=== PATIENT | female | born 1945 | race Caucasian/White ===

== ENCOUNTER 2017-07-25 13:13 | Observation (INO) | payer OTHER ==
[~2017-07-25] VITALS: Ht 160 cm; Wt 52.6 kg
[2017-07-25 13:17] VITALS: BP 109/45
[2017-07-25 14:37] LABS: BASOPHILS # (AUTO) 0.1 K/uL (0.00-0.22); BASOPHILS % (AUTO) 0.6 % (0.0-2.0); EOSINOPHILS % (AUTO) 0.4 % (0.0-4.0); HEMATOCRIT 42.4 % (36-48); HEMOGLOBIN 13.8 g/dL (12.0-16.0); LYMPHOCYTES # (AUTO) 1.8 K/uL (2.5-16.5); LYMPHOCYTES % (AUTO) 16.9 % (20.5-51.1); MEAN CORPUSCULAR HEMOGLOBIN 31 pg (27-31); MEAN CORPUSCULAR HGB CONC 33 g/dL (33-37); MEAN CORPUSCULAR VOLUME 93.6 fL (80-94); MONOCYTES # (AUTO) 0.6 K/uL (0.8-1.0); MONOCYTES % (AUTO) 5.4 % (1.7-9.3); NEUTROPHILS % (AUTO) 76.7 % (42.2-75.2); PLATELET COUNT (AUTO) 386 K/uL (140-450); RED BLOOD CELL COUNT(AUTO) 4.53 MIL/uL (4.20-5.40); RED CELL DISTRIBUTION WIDTH 14.2 % (11.6-13.7); WHITE BLOOD COUNT (AUTO) 10.4 K/uL (4.8-10.8)
[2017-07-25 14:59] LABS: ALBUMIN 3.3 g/dL (3.4-5.0); ANION GAP 11.2 (8-16); ASPARTATE AMINOTRANSFERASE 21 U/L (15-37); CARBON DIOXIDE 27.6 mmol/L (21-32); CHLORIDE 107 mmol/L (98-107); CREATININE 0.6 mg/dL (0.6-1.3); GFR ARICAN-AMERICAN 127 mL/min (>90); GLUCOSE 124 mg/dL (74-106); POTASSIUM 3.8 mmol/L (3.5-5.1); SODIUM SERUM 142 mmol/L (136-145); TOTAL BILIRUBIN 1.2 mg/dL (0.0-1.0); UREA NITROGEN, BLOOD 10 mg/dL (7-18)
[2017-07-25] MEDS ORDERED: NACL 0.9% 1,000 ML IV ONE (15:15)
[2017-07-25 15:21] LABS: ACETAMINOPHEN < 0.5 ug/ml (10-30); SALICYLATE < 2.8 mg/dL (2.8-20.0)
[2017-07-25] MEDS: NACL 0.9% 2,000 ML IV SCH ×2 (15:23→20:36)
[2017-07-25 16:39] LABS: BLOOD, URINE NEGATIVE (NEGATIVE); COLOR,URINE YELLOW (YELLOW); LEUKOCYTE ESTERASE ,URINE 1+ (NEGATIVE); NITRITE, URINE NEGATIVE (NEGATIVE); PH,URINE 5.5 (5.0-9.0); UGLUCOSE NEGATIVE (NEGATIVE)
[2017-07-25 16:44] LABS: APPEARANCE,URINE HAZY (CLEAR); BILIRUBIN,URINE NEGATIVE (NEGATIVE)
[2017-07-25 16:52] LABS: RBC,URINE NONE SEEN /HPF (0-5)
[2017-07-25] MEDS ORDERED: LORazepam 2 MG/ML VIAL IVP ONE (17:10)
[2017-07-25] MEDS ORDERED: cefTRIAXone 1,000 MG VIAL ONE (17:37)
[2017-07-25] MEDS: NACL 0.9% 1,000 ML IV SCH (18:26)
[2017-07-25] MEDS ORDERED: LORazepam 2 MG/ML VIAL IVP PRN (18:30)
[2017-07-25] MEDS ORDERED: ONDANSETRON 4 MG/2 ML VIAL IVP PRN (18:30)
[2017-07-25] MEDS ORDERED: ACETAMINOPHEN 325 MG TAB PO PRN (18:30)
[2017-07-25] MEDS ORDERED: HYDROcodone/APAP 5/325 MG 1 TAB TAB PO PRN (18:30)
[2017-07-25 18:44] LABS: BARBITURATE, URINE NEG. ng/ml (NEG <=200); BENZODIAZEPINE, URINE POS. ng/mL (NEG <=200); CANNABINOID, URINE NEG. ng/mL (NEG <=50); COCAINE, URINE NEG. ng/mL (NEG <=300); OPIATE, URINE NEG. ng/mL (NEG <=2000); PHENCYCLIDINE SCREEN,URINE NEG. ng/mL (NEG <=25)
[2017-07-25 19:15] VITALS: BP 95/59
[2017-07-25 23:39] LABS: CREATINE KINASE MB 1.3 ng/mL (0-3.6)
[2017-07-26] VITALS: BP 106/62
[2017-07-26 04:00] VITALS: BP 106/67
[2017-07-26] MEDS: NACL 0.9% 1,000 ML IV SCH ×2 (06:56→21:40)
[2017-07-26 07:33] LABS: BASOPHILS % (AUTO) 0.5 % (0.0-2.0); EOSINOPHILS # (AUTO) 0.1 K/uL (0-0.4); EOSINOPHILS % (AUTO) 0.8 % (0.0-4.0); HEMATOCRIT 43.9 % (36-48); HEMOGLOBIN 14.7 g/dL (12.0-16.0); LYMPHOCYTES # (AUTO) 1.5 K/uL (2.5-16.5); LYMPHOCYTES % (AUTO) 18.1 % (20.5-51.1); MEAN CORPUSCULAR HEMOGLOBIN 32 pg (27-31); MEAN CORPUSCULAR HGB CONC 34 g/dL (33-37); MONOCYTES # (AUTO) 0.6 K/uL (0.8-1.0); MONOCYTES % (AUTO) 7.4 % (1.7-9.3); NEUTROPHILS # (AUTO) 6.2 K/uL (1.8-7.7); NEUTROPHILS % (AUTO) 73.2 % (42.2-75.2); PLATELET COUNT (AUTO) 351 K/uL (140-450); RED BLOOD CELL COUNT(AUTO) 4.67 MIL/uL (4.20-5.40); RED CELL DISTRIBUTION WIDTH 13.8 % (11.6-13.7); WHITE BLOOD COUNT (AUTO) 8.5 K/uL (4.8-10.8)
[2017-07-26 08:00] VITALS: BP 101/65
[2017-07-26 08:10] LABS: CREATINE KINASE MB 1.2 ng/mL (0-3.6)
[2017-07-26] MEDS ORDERED: HALOPERIDOL IM 5 MG/ML VIAL IM SCH (08:45)
[2017-07-26] MEDS: ASPIRIN 81 MG TAB.CHEW PO SCH (09:00)
[2017-07-26] MEDS: ENOXAPARIN 40 MG/0.4 ML SYR SUBQ SCH (09:00)
[2017-07-26 09:49] LABS: CARBON DIOXIDE 24.4 mmol/L (21-32); CREATININE 0.5 mg/dL (0.6-1.3); POTASSIUM 3.4 mmol/L (3.5-5.1)
[2017-07-26 16:00] VITALS: BP 99/42
[2017-07-26] MEDS ORDERED: POTASSIUM CHLORIDE 10 MEQ TABER PO SCH (17:10)
[2017-07-27] MEDS: NACL 0.9% 1,000 ML IV SCH (07:56)
[2017-07-27] MEDS: ENOXAPARIN 40 MG/0.4 ML SYR SUBQ SCH (09:00)
[2017-07-27] MEDS: ASPIRIN 81 MG TAB.CHEW PO SCH (09:00)
[2017-07-27] MEDS ORDERED: DIVALPROEX 250 MG TABEC PO SCH ×2 (09:50→10:00)
[2017-07-27] MEDS ORDERED: LORazepam 1 MG TAB PO PRN (09:50)
[2017-07-27] MEDS ORDERED: DONE10TA10 PO (11:26)
[2017-07-27] MEDS ORDERED: CITA40TA5 PO (11:26)
[2017-07-27] MEDS ORDERED: ALPR0.5T20 PO (11:27)
[2017-07-27] MEDS ORDERED: LORA0.5T6 PO ×2 (11:29→11:31)
== END 2017-07-27 11:45 | disposition home or self-care (01) ==
LOC: MED 13:13 → MTU 18:31 → UNDOADMIN 18:31
PROVIDERS: ADMIT Hospitalist; ATTEND Hospitalist
DX: R41.82 Altered mental status, unspecified (principal); N39.0 Urinary tract infection, site not specified; G30.9 Alzheimer's disease, unspecified
CPT/HCPCS: 36415; 70450; 71045; 73020; 73560; 80048; 80053; 80305; 81001; 82550; 82553; 83735; 84484; 85025; 87040; 87081; 87086; 90471; 90715; 93005; 96361; 96365; 96372; 96375; 96376; 99285; G0378; G0480; G0482; J0696; J1630; J2060; J7060; Q0092; J1650

== ENCOUNTER 2017-12-31 19:00 | Inpatient (IN) | payer OTHER ==
[~2017-12-31] VITALS: Ht 162.6 cm; Wt 59.0 kg
[~2017-12-31 19:00] MED LIST: CITA40TA5 PO; DONE10TA10 PO; LORA0.5T6 PO
--- NOTE | 2017-12-31 19:05 | NUR ---
PT LEXUS BLS. TAKEN TO BED 6
[2017-12-31 19:08] VITALS: BP 132/77
[2017-12-31] MEDS ORDERED: ZIPRASIDONE MESYLATE 20 MG/ML VIAL IM ONE (19:30)
--- NOTE | 2017-12-31 19:30 | NUR ---
72 YO FEMALE BIB EMS ON 5150 HOLD, PER REPORT PT IS GRAVELY DISABLED. HAS HX OF DEMENTIA AND ALZEIHMERS. PT REPORTEDLY LIVES WITH SON GORGE AND RAN INTO STREET REFUSING MEDICATION. PT AWAKE ANSWERING QUESTIONS BUT IS FORGETFUL. PT CONFUSED ABOUT HER WHEREABOUTS AND IS A POOR HISTORIAN. LUNGS CLEAR TO AUSCULTATION. S1 S2 HEARD, <3 SEC CAP REFILL. SKIN PINK WARM DRY INTACT. PT FREQUENTLY REQUESTING TO USE RESTROOM. PT VOIDING CLEAR YELLOW URINE. NO ACUTE DISTRESS NOTED. WILL CONTINUE TO OBSERVE.
[2017-12-31] MEDS ORDERED: WATER STERILE 10 ML MC ONE (19:51)
--- NOTE | 2017-12-31 20:06 | NUR ---
Dr. Sher evaluating patient at bedside.
[2017-12-31] MEDS ORDERED: LORazepam 2 MG/ML VIAL IM ONE (20:20)
[2017-12-31] MEDS ORDERED: LORazepam 2 MG/ML VIAL ONE (20:28)
--- NOTE | 2017-12-31 20:30 | NUR ---
PT GIVEN ATIVAN FOR AGITATION. PT CONTINUES TO ASK FOR SISTER, YELLING @ STAFF; FLAILING ARMS @ STAFF. PT REDIRECTED; REORIENTED. ASSISTED TO BED, EMT @ BEDSIDE. BED LOCKED IN LOWEST POSITION. SAFETY PRECAUTIONS IN PLACE. WILL CONTINUE TO OBSERVE.
[2017-12-31 20:33] LABS: APPEARANCE,URINE CLEAR (CLEAR); BARBITURATE, URINE NEG. ng/ml (NEG <=200); BENZODIAZEPINE, URINE NEG. ng/mL (NEG <=200); BILIRUBIN,URINE NEGATIVE (NEGATIVE); BLOOD, URINE TRACE (NEGATIVE); CANNABINOID, URINE NEG. ng/mL (NEG <=50); COCAINE, URINE NEG. ng/mL (NEG <=300); COLOR,URINE YELLOW (YELLOW); OPIATE, URINE NEG. ng/mL (NEG <=2000); PHENCYCLIDINE SCREEN,URINE NEG. ng/mL (NEG <=25); UGLUCOSE NEGATIVE (NEGATIVE)
[2017-12-31 20:34] LABS: LEUKOCYTE ESTERASE ,URINE SMALL (NEGATIVE); NITRITE, URINE NEGATIVE (NEGATIVE)
[2017-12-31 20:37] LABS: RBC,URINE 3-10 (FEW) /HPF (0-5)
[2017-12-31] MEDS ORDERED: cefTRIAXone 1,000 MG VIAL ONE (21:36)
[2017-12-31 21:39] LABS: BASOPHILS # (AUTO) 0.1 K/uL (0.00-0.22); BASOPHILS % (AUTO) 0.6 % (0.0-2.0); EOSINOPHILS # (AUTO) 0.1 K/uL (0-0.4); EOSINOPHILS % (AUTO) 0.7 % (0.0-4.0); HEMATOCRIT 41.2 % (36-48); HEMOGLOBIN 13.5 g/dL (12.0-16.0); LYMPHOCYTES # (AUTO) 3.4 K/uL (2.5-16.5); LYMPHOCYTES % (AUTO) 33.4 % (20.5-51.1); MEAN CORPUSCULAR HEMOGLOBIN 31 pg (27-31); MEAN CORPUSCULAR HGB CONC 33 g/dL (33-37); MEAN CORPUSCULAR VOLUME 94.4 fL (80-94); MONOCYTES # (AUTO) 0.7 K/uL (0.8-1.0); MONOCYTES % (AUTO) 6.5 % (1.7-9.3); NEUTROPHILS % (AUTO) 58.8 % (42.2-75.2); PLATELET COUNT (AUTO) 262 K/uL (140-450); RED BLOOD CELL COUNT(AUTO) 4.36 MIL/uL (4.20-5.40); RED CELL DISTRIBUTION WIDTH 14.4 % (11.6-13.7); WHITE BLOOD COUNT (AUTO) 10.1 K/uL (4.8-10.8)
[2017-12-31 21:57] LABS: ALBUMIN 3.3 g/dL (3.4-5.0); ANION GAP 15.7 (8-16); ASPARTATE AMINOTRANSFERASE 34 U/L (15-37); CARBON DIOXIDE 23.5 mmol/L (21-32); CHLORIDE 108 mmol/L (98-107); CREATININE 0.5 mg/dL (0.6-1.3); GLUCOSE 150 mg/dL (74-106); SODIUM SERUM 143 mmol/L (136-145); TOTAL BILIRUBIN 1.1 mg/dL (0.0-1.0)
[2017-12-31 22:07] LABS: UREA NITROGEN, BLOOD 11 mg/dL (7-18)
[2017-12-31 22:11] LABS: POTASSIUM 4.2 mmol/L (3.5-5.1)
[2017-12-31 22:12] LABS: ACETAMINOPHEN < 0.5 ug/ml (10-30); SALICYLATE < 2.8 mg/dL (2.8-20.0)
--- NOTE | 2017-12-31 22:15 | NUR ---
PT APPEARS ASLEEP; EYES CLOSED, AROUSABLE TO NAME. VITAL SIGNS WNL. 98RA NO S/S OF ACUTE DISTRESS. WILL CONTINUE TO OBSERVE.
--- NOTE | 2017-12-31 23:35 | NUR ---
Packet Faxed to designated facilities Edu Gregory-Patricia intake Odin Carreon-Maco intake [facility] [place] [facility]ito Gutierrez intake Lu Colón-Alie intake Nohemi Garcia Rikki intake At this time packet is beaing evaluated , will notify ER if placement is found.
[2018-01-01] MEDS ORDERED: ONDANSETRON 4 MG/2 ML VIAL IVP PRN (01:25)
[2018-01-01 01:40] VITALS: BP 116/72
--- NOTE | 2018-01-01 01:40 | NUR ---
Admitted from ER TO TELEMETRY UNIT, with chief complaint of ALOC, 72 y/o, Female, DROWSY, AWAKE, A/OX1. BROUGHT BY [place] POLICE TO ER, PATIENT PER SON RUN INTO THE STREETS, HAS NOT BEEN TAKING HER MEDICATIONS, 5150 FOR GRAVELY DISABLED. IV SALINE LOCK AT THE RIGHT AC G20, PATENT AND INTACT. RESPIRATION EVEN AND UNLABORED. HEAD TO TO ASSESSMENT DONE WITH ANTONIO MONCADA, NOTED SMALL SCAB IN THE LEFT FOREARM. SKIN INTACT. REORIENTED PATIENT TO HOSPITAL SETTING. AMBULATED TO BR TO VOID AND BACK TO BED, AFTER FEW MINUTES STARTED SNORING. NO APPEARANCE OF PAIN NOTED 0/10. oriented to call light, bed, phone,television, bathroom, smoking policy, visiting hours, procedures, ID bracelet on. Belongings list checked.
--- NOTE | 2018-01-01 01:45 | NUR ---
Patient will be admitted to care of DR. Karma WARE. Admited to [facility]. Will go to room 110B. Belongings list completed. Report to LEDY ALVAREZ. NO ACUTE DISTRESS NOTED.
--- NOTE | 2018-01-01 04:00 | NUR ---
STILL SLEEPING SOUNDLY IN BED. WILL CONTINUE TO MONITOR FOR SAFETY.
--- NOTE | 2018-01-01 06:10 | NUR ---
AWAKE, ASSISTED TO BR TO VOID. STILL VERY CONFUSED.
--- NOTE | 2018-01-01 06:55 | NUR ---
WANTS TO GO HOME BUT ADVISED TO WAIT FOR THE DOCTOR. CANNOT REMEMBER WHY SHE IS IN THE HOSPITAL.
--- NOTE | 2018-01-01 07:05 | NUR ---
STILL CONFUSED, ENDORSE TO ANTONIO ZHAO FOR CONTINUITY OF CARE.
--- NOTE | 2018-01-01 07:06 | NUR ---
RECEIVED REPORT FROM PM NURSE AT BEDSIDE . PT IS AWAKE AND CONFUSED. WANDERING AROUND ROOM, ASKING FOR HER CLOTHES. PER PM NURSE, PT CAME WITHOUT ANY CLOTHES TO THE FLOOR. INFORMED PT TO STAY IN ROOM, WILL CALL SECURITY TO CHECK IF THEY HAVE CLOTHES. PT STATES WANT TO GO HOME. PT CANNOT REMEMBER PERSON TO CONTACT. WILL CLOSELY MONITOR PT. PT ON FALL RISK PRECAUTION. HAS YELLOW GOWN ON, YELLOW SHOCKS. PT KEEP GETTING UP FROM BED, HAS STEADY GAIT. IS CONFUSED , ASKING WHERE SHE IS AT , INFORMED HER THAT [place] WILL CONTINUE TO MONITOR PT.
[2018-01-01 08:00] VITALS: BP 122/50
[2018-01-01] MEDS ORDERED: LORazepam 2 MG/ML VIAL IVP PRN (10:55)
--- NOTE | 2018-01-01 11:06 | NUR ---
PT AGITATED , BEING COMBATIVE. PT IS CONFUSED AND IS DISORIENTED. STATES OF GOING HOME. PT TRIED HITTING SITTER AT BEDSIDE X2, TRIED HITTING TO SECURITY . SECURITY PRESENT AT BEDSIDE. ADMINISTER ATIVAN TO MANAGE PTS AGITATION. PT NON-COMPLIANCE , KEEPS WANDERING AROUND THE UNIT. CHARGE NURSE AWARE . SITTER AT BEDSIDE. WILL CONTINUE TO MONITOR PT.
--- NOTE | 2018-01-01 12:16 | NUR ---
RECEIVED CALL FROM PT , UPDATED ON PT. STATES WILL BE IN HOSPITAL IN AN HOUR. PH# [phone].
--- NOTE | 2018-01-01 14:15 | NUR ---
AT BEDSIDE. PT SLEEPING AT THIS TIME. PER , PT KEEPS TALKING ON PHONE, MAD AT FAMILY MEMBERS ALL TIME, BUT SHE IS NOT ON PHONE IN REAL. JUST KEEPS TALKING TO IMAGINARY PERSON. PT WAS SEEN BY PSYCH PROVIDER BEFORE, REFERRED TO NEUROLOGIST , STATING THAT PT NEEDS SECOND OPINION TO FINALIZE DX. PT WAS SENT TO NEUROLOGIST , CANNOT COME UP WITH DEFINITE DX FOR PT. 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 PT GETS COMBATIVE, CUSHES A LOT AT HOME, GET HOSTILE AT HOME WELL. PER , NOT SURE WHAT KIND OF FACILITY CAN PT BE PLACED HE IS UNAWARE OF PTS DISEASE PROCESS. INFORMED HIM THAT PT IS DUE TO SEE BY PSYCH CONSULT AND WILL GO FURTHER FROM THERE. PT GETTING MEDS BY CALLING HIS SON. PT IS SLEEPING AT THIS TIME. WILL CONTINUE TO MONITOR FOR BEHAVIOR AND AGITATION. CIVIL DRAFTSMAN SITTER AT DOOR FOR PT. WILL CONTINUE TO MONITOR PT.
--- NOTE | 2018-01-01 15:14 | NUR ---
CHECKED ON PT. SLEEPING AT THIS TIME. NOT AT BEDSIDE. HAS SITTER AT BEDSIDE OBSERVING PT. WILL CONTINUE TO MONITOR PT.
--- NOTE | 2018-01-01 17:17 | NUR ---
ADMINISTERED ABX AAS ORDERED TO PT. TOLERATED WELL. PT SLEEPING IN BED AT THIS TIME. NO SIGN OF DISTRESS. SITTER AT BEDSIDE. WILL CONTINUE TO MONITOR PT.
--- NOTE | 2018-01-01 19:24 | NUR ---
ENDORSED PT TO PM NURSE AT BEDSIDE. PT STILL SLEEPING. PT IN STABLE CONDITION.
--- NOTE | 2018-01-01 19:25 | NUR ---
RECD. STILL SLEEPING COMFORTABLY, RESPIRATIONE EVEN AND UNLABORED. IV SALINE LOCK AT THE RIGHT FOREARM G20, STILL INTACT COVERED WITH KERLIX. SAFETY MEASURES ENFORCED. NO APPEARANCE OF PAIN NOTED. WILL CONTINUE TO MONITOR PATIENT ANY UNUSUAL BEHAVIOR AND ENSURE SAFETY DURING THIS SHIFT.
--- NOTE | 2018-01-01 19:40 | NUR ---
CAME AND STATED PATIENT HAS BEEN HAVING UNCONTROLLED BEHAVIOR FOR FOUR YEARS NOW, IT SO HAPPENED HE IS NOT HOME WHEN THE PATIENT TRIES TO RUN AWAY. STATED HE HAS BEEN DISCUSSING WITH PATIENT'S NEUROLOGIST REGARDING TREATMENT BUT PATIENT DOES NOT IMPROVE.
--- NOTE | 2018-01-01 20:00 | NUR ---
Patient's Plan of Care was discussed and reviewed with CHILLER TECHNICIAN: JEROME MONTGOMERY.
[2018-01-01] MEDS: OLANZapine 5 MG TAB PO SCH (21:00)
[2018-01-01] MEDS: DONEPEZIL 10 MG TAB PO SCH (21:00)
--- NOTE | 2018-01-01 21:00 | NUR ---
STILL SLEEPING, LEFT, WILL COME BACK TOMORROW.
[2018-01-02] VITALS: BP 107/57
--- NOTE | 2018-01-02 00:40 | NUR ---
WOKE UP FROM SLEEP, ASSISTED TO BR TO VOID. STILL CONFUSED DOES NOT KNOW HOW TO USE THE TOILET. REORIENTED TO HOSPITAL SETTING. WANT TO GO HOME, STILL LOOKING FOR HER CLOTHES. TRYING TO GET OUT OF ROOM TO WALK IN THE HALLWAY.
--- NOTE | 2018-01-02 00:49 | NUR ---
INFORMED DR. RABAGO PATIENT IS AGITATED AND REFUSING THE 1 MG. ATIVAN TABLET. ORDERED ONE TIME DOSE OF ATIVAN 1 MG. IVP. OVERRIDE BECAUSE PATIENT IS ALREADY GETTING COMBATIVE.
--- NOTE | 2018-01-02 00:50 | NUR ---
WITH AGITATION, TRIED TO MEDICATE WITH ATIVAN 1 MG. PO, ALSO TRIED TO GIVE HER NIGHT MEDICATIONS THAT WAS NOT GIVEN WHILE SHE IS SLEEPING BUT STARTS TO GET ANGRY AND REFUSED TO DRINK THE MEDICINES.
--- NOTE | 2018-01-02 00:56 | NUR ---
MEDICATED WITH ATIVAN 1 MG. IVP BY CHARGE NURSE
[2018-01-02] MEDS ORDERED: LORazepam 2 MG/ML VIAL ONE (00:57)
[2018-01-02] MEDS: OLANZapine 5 MG TAB PO SCH ×4 (01:06→17:20)
[2018-01-02] MEDS: DONEPEZIL 10 MG TAB PO SCH ×2 (01:07→21:08)
--- NOTE | 2018-01-02 01:15 | NUR ---
Still looking for placement Kyle charge nurse at [facility] aware, at this time there are no beds available at the following facilities [facility], [facility], [facility], and [facility] . Will notify Charge nurse Kyle RN if placement is found.
--- NOTE | 2018-01-02 01:25 | NUR ---
NO AGITATION, SLEEPING COMFORTABLY IN BED.
[2018-01-02] MEDS ORDERED: LORazepam 2 MG/ML VIAL IM/IVP SCH (01:30)
--- NOTE | 2018-01-02 01:40 | NUR ---
WOKE UP, ASSISTED TO GO TO BR TO VOID. BACK TO BED AFTER VOIDING.
--- NOTE | 2018-01-02 02:40 | NUR ---
WOKE UP AND AMBULATED TO BR TO VOID, EACH TIME SMALL AMOUNT OF URINE ONLY, FOR THE FIFTH TIME. ASSISTED BACK TO BED. SAFETY MAINTAINED.
[2018-01-02] MEDS: LORazepam 0.5 MG TAB PO PRN ×2 (03:01→13:14)
--- NOTE | 2018-01-02 03:01 | NUR ---
AGITATED, MEDICATED WITH ATIVAN 1 MG. PO.
--- NOTE | 2018-01-02 04:00 | NUR ---
STILL AGITATED, ALWAYS TRYING TO GET OUT OF BED, PUSHING NURSES.
--- NOTE | 2018-01-02 04:05 | NUR ---
INFORMED SIVAKUMAR TAYLOR IS NOT WORKING FOR PATIENT STILL AGITATED. ORDERED HALDOL AND MAY ORDER SITTER IF PATIENT IS GETTING AGGRESSIVE. INFORM CHARGE NURSE ASH.
[2018-01-02 04:21] VITALS: BP 137/60
[2018-01-02] MEDS: HALOPERIDOL IM 5 MG/ML VIAL IM PRN ×2 (04:21→12:53)
--- NOTE | 2018-01-02 04:21 | NUR ---
MEDICATED WITH HALDOL 2.5 MG. IM LEFT ARM. WILL CONTINUE TO MONITOR PATIENT.
--- NOTE | 2018-01-02 05:21 | NUR ---
STILL AGITATED, KEEP ON GETTING OUT OF BED, SEEING THINGS. WANTS TO GO HOME, LOOKING FOR GUS. REORIENTED TO HOSPITAL SETTING.
--- NOTE | 2018-01-02 06:20 | NUR ---
STILL CONFUSED AND RESTLESS. ALWAYS ASSISTED BACK TO BED AND STILL KEEP ON GETTING OUT OF BED. ADVISED TO GO BACK TO BED.
--- NOTE | 2018-01-02 06:45 | NUR ---
TRIED TO GET OUT OF THE ROOM BUT NOT ALLOWED TO DO SO. WHEN ASSISTED BACK TO BED, HIT NURSE ON THE FACE. PUT BACK TO BED WITH HELP OF SITTER AND CHARGE NURSE.
--- NOTE | 2018-01-02 07:00 | NUR ---
STILL GETTING OUT OF BED, WALKING AROUND HER ROOM, SITTER MONITORING PATIENT. WILL ENDORSE TO AM NURSE FOR CONTINUITY OF CARE.
--- NOTE | 2018-01-02 07:25 | NUR ---
ENDORSED TO LORA ALVAREZ FOR CONTINUITY OF CARE.
--- NOTE | 2018-01-02 07:30 | NUR ---
RECEIVED PATIENT BY HER BEDSIDE. THE PATIENT IS CALM AND ALERT AT THIS TIME. PATIENT STATED THAT SHE IS NOT IN ANY PAIN OR DISTRESS. SHE HAS EVEN UNLABORED RESPIRATION ON ROOM AIR. IV R AC 20G DRY AND INTACT. BED POSITION AT THE LOWEST POSITION AND CALL LIGHT WITHIN REACH. SITTER IS BY HER SIDE.
[2018-01-02 07:31] LABS: ALBUMIN 3.1 g/dL (3.4-5.0); ANION GAP 13.6 (8-16); ASPARTATE AMINOTRANSFERASE 23 U/L (15-37); CARBON DIOXIDE 26.1 mmol/L (21-32); CHLORIDE 108 mmol/L (98-107); CREATININE 0.6 mg/dL (0.6-1.3); GLUCOSE 92 mg/dL (74-106); POTASSIUM 3.7 mmol/L (3.5-5.1); SODIUM SERUM 144 mmol/L (136-145); TOTAL BILIRUBIN 1.1 mg/dL (0.0-1.0); UREA NITROGEN, BLOOD 11 mg/dL (7-18)
[2018-01-02] MEDS: CITALOPRAM 20 MG TAB PO SCH (08:16)
[2018-01-02] MEDS: MEMANTINE 10 MG TAB PO SCH (08:16)
--- NOTE | 2018-01-02 08:16 | NUR ---
SCHEDULED MEDICATIONS ADMINISTERED. MEDS CRUSHED AND MIXED WITH PUDDING
--- NOTE | 2018-01-02 08:17 | NUR ---
PATIENT HAS BEEN SCREENED AND CATEGORIZED LOW NUTRITION RISK. PATIENT WILL BE SEEN WITHIN 7 DAYS OF ADMISSION. 01/07/[address]
--- NOTE | 2018-01-02 09:00 | NUR ---
PATIENT SEEN BY DR MOTA
[2018-01-02 09:07] LABS: BASOPHILS # (AUTO) 0.1 K/uL (0.00-0.22); BASOPHILS % (AUTO) 0.6 % (0.0-2.0); EOSINOPHILS # (AUTO) 0.1 K/uL (0-0.4); EOSINOPHILS % (AUTO) 0.7 % (0.0-4.0); HEMATOCRIT 42.4 % (36-48); HEMOGLOBIN 13.9 g/dL (12.0-16.0); LYMPHOCYTES # (AUTO) 1.8 K/uL (2.5-16.5); LYMPHOCYTES % (AUTO) 17.9 % (20.5-51.1); MEAN CORPUSCULAR HEMOGLOBIN 31 pg (27-31); MEAN CORPUSCULAR HGB CONC 33 g/dL (33-37); MEAN CORPUSCULAR VOLUME 94.8 fL (80-94); MONOCYTES # (AUTO) 0.6 K/uL (0.8-1.0); MONOCYTES % (AUTO) 6.2 % (1.7-9.3); NEUTROPHILS # (AUTO) 7.5 K/uL (1.8-7.7); NEUTROPHILS % (AUTO) 74.6 % (42.2-75.2); PLATELET COUNT (AUTO) 255 K/uL (140-450); RED BLOOD CELL COUNT(AUTO) 4.47 MIL/uL (4.20-5.40); RED CELL DISTRIBUTION WIDTH 14.1 % (11.6-13.7); WHITE BLOOD COUNT (AUTO) 10.1 K/uL (4.8-10.8)
[2018-01-02 09:24] VITALS: BP 132/66
--- NOTE | 2018-01-02 11:08 | NUR ---
PATIENT IS SITTING ON HER BED AND SITTER IS BY HER SIDE. PATIENT CONTINUOUSLY WANTS TO LEAVE HER ROOM AND NEEDS TO BE REORIENTED. NO PAIN NOTED AT THIS TIME.
[2018-01-02] MEDS ORDERED: OLAN5TAB30 PO (11:13)
[2018-01-02] MEDS ORDERED: MEMA10TA PO (11:13)
[2018-01-02] MEDS ORDERED: CEPH250C16 PO (11:14)
[2018-01-02] MEDS: CEPHALEXIN 500 MG CAP PO SCH ×2 (12:01→21:08)
--- NOTE | 2018-01-02 13:34 | NUR ---
Contacted registered nurse hh case manager, Darlene, requesting assessment for SNF vs Psych. Per Darlene, she will contact physician and call back. No eta.
--- NOTE | 2018-01-02 14:10 | NUR ---
PATIENT IS LYING ON HER BED CALMLY WITHOUT ANY APPEARANCE OF DISTRESS OR PAIN. HER FAMILY IS BY HER SIDE. SEEM TO DECREASE HER ANXIETY AND AGITATION.
--- NOTE | 2018-01-02 14:32 | NUR ---
CM NOTE I RECEIVED CALL FROM JAIMIE [facility] REQUESTING ASSESSMENT FOR SNF VS PSYCH. SHE STATED THAT SHE IS HAVING A HARD TIME GETTING AN ACCEPTING PSYCH FACILITY BECAUSE OF PATIENT'S ALZHEIMER'S DEMENTIA AND THAT PATIENT'S 5150 SHOWED THAT PATIENT'S SON IS UNABLE TO CARE FOR HER. I INFORMED JAIMIE THAT OUR SHARE HOLDER HAS DONE HER SCREEN AND HAS SPOKEN WITH PATIENT'S IBETH WHO IS ABLE TO TAKE PATIENT HOME IF CLEARED FROM 5150 HOLD. I INFORMED CHARGE NURSE ROGER THAT I RECEIVED CALL FROM JAIMIE [facility] PH# [phone] REQUESTING ASSESSMENT FOR SNF VS PSYCH AND TO CLARIFY WITH DR. WHITTEN WHAT THE PATIENT NEEDS. PER CHARGE NURSE ROGER, DR. WHITTEN'S ORDER IS TO TRANSFER TO [facility]. JAIMIE [facility] AWARE. MIKHAIL MEDINA PH# [phone] REQUESTED FOR H&P, CONSULTATION, 5150 HOLD AND LIST OF MEDICATIONS TO BE FAXED TO HER AT [facility] [phone]. FAXED TO MIKHAIL.
[2018-01-02 16:00] VITALS: BP 109/66
--- NOTE | 2018-01-02 17:20 | NUR ---
AND NIECES ARE BY THE PATIENT'S BEDSIDE. PATIENT DOES NOT APPEAR TO BE IN ANY PAIN OR DISTRESS AT THIS TIME. PATIENT IS ALERT BUT STILL CONFUSED; EXPLAINED THE MEDICATION ADMINISTRATION TO THE AND PATIENT. VSS. PATIENT IS LYING COMFORTABLY ON HER BED WITHOUT ANY AGITATION OR ANXIETY. WILL CONTINUE TO MONITOR.
--- NOTE | 2018-01-02 19:37 | NUR ---
RECEIVED BEDSIDE REPORT FROM ANTONIO PAULINO. PATIENT IN BED, SLEEPING COMFORTABLY, ON RA, AT BEDSIDE. ABLE TO ANSWER QUESTIONS REGARDING PATIENT. PATIENT 1:1 SITTER, NOTED TO BE COMBATIVE AND AGGRESSIVE TOWARDS OTHERS. IV IN LEFT FA 20 G, SL, DRESSING INTACT. UPDATED BOARD, EXPLAINED PLAN OF CARE, BED ALARM ON, WILL CONTINUE TO MONITOR.
--- NOTE | 2018-01-02 19:37 | NUR ---
ENDORSED PATIENT TO HOUSEHOLD APPLIANCE MECHANIC RN BY THE BEDSIDE. PATIENT IS SLEEPING AND IS STILL PRESENT. PATIENT DOES NOT APPEAR TO BE IN ANY DISTRESS OR PAIN AT THIS TIME. BED AT THE LOWEST POSITION AND CALL LIGHT WITHIN REACH.
--- NOTE | 2018-01-02 20:32 | NUR ---
Spoke with Kelsey @ [facility]. Packet was sent out for review for possible bed. Kelsey will call back if they can accommodate the patient tonight.
--- NOTE | 2018-01-02 20:45 | NUR ---
PATIENTS REFUSED FLU AND PNEUMONIA VACCINATIONS FOR PATIENT. CHARGE NURSE MONIQUE MCLAUGHLIN.
--- NOTE | 2018-01-02 21:00 | NUR ---
CALL FROM [facility] IN [place], SPOKE WITH ROBBIE REGARDING POSSIBLE PLACEMENT AND TRANSFER TO THEIR FACILITY, QUESTIONS REGARDING PATIENTS HISTORY AND PHYSICAL ANSWERED, ROBBIE STATED THEY WILL REVIEW IF PATIENT IS A GOOD CANDIDATE FOR THEIR FACILITY. GAVE ROBBIE HUSBANDS AND SONS PHONE NUMBER FOR FURTHER INFORMATION IF NEEDED. ROBBIE STATED THEY WILL KEEP IN CONTACT WITH US. CHARGE NURSE MONIQUE MCLAUGHLIN.
--- NOTE | 2018-01-02 21:08 | NUR ---
DUE MEDICATIONS CRUSHED AND PLACED IN APPLE SAUCE, PATIENT SPIT OUT SOME. EDUCATION PROVIDED. WILL CONTINUE TO MONITOR.
--- NOTE | 2018-01-02 22:45 | NUR ---
PATIENT SLEEPING IN BED, CONTINUE WITH 1:1 SITTER. WILL CONTINUE TO MONITOR.
[2018-01-03] VITALS: BP 105/66
--- NOTE | 2018-01-03 00:15 | NUR ---
V/S TAKEN BP 105/66. DENIES PAIN, CONTINUE WITH 1:1 SITTER. WILL CONTINUE TO MONITOR.
--- NOTE | 2018-01-03 02:21 | NUR ---
PATIENT ASLEEP IN BED, NO SIGNS OF AGGRESSION OR ANXIETY, CONTINUE WITH 1:1 SITTER, WILL CONTINUE TO MONITOR.
[2018-01-03] MEDS: HALOPERIDOL IM 5 MG/ML VIAL IM PRN (03:56)
--- NOTE | 2018-01-03 03:57 | NUR ---
PATIENT WANDERING AROUND NURSING STATION, VERBAL AND PHYSICALLY AGGRESSIVE, SHAKING AND LOOKS ANXIOUS. MEDICATED WITH HALOPERIDOL ACCORDING TO MD ORDER.
--- NOTE | 2018-01-03 04:02 | NUR ---
PATIENT CONFUSED AND AGITATED, SPIT X1 WHEN OFFERED WATER, UNABLE TO GIVE DUE MEDICATION.
[2018-01-03] MEDS: CEPHALEXIN 500 MG CAP PO SCH ×4 (04:03→21:48)
--- NOTE | 2018-01-03 04:12 | NUR ---
no update with [facility], packet still being reviewed. No beds at the following facilities still. [facility], s/w Christo. [facility], s/w Ida. [facility], s/w Amarilis. [facility], s/w Di.
--- NOTE | 2018-01-03 07:00 | NUR ---
MEDICATED WITH ATIVAN ACCORDING TO MD ORDER FOR ANXIETY AND RESTLESSNESS.
[2018-01-03] MEDS: LORazepam 0.5 MG TAB PO PRN (07:06)
--- NOTE | 2018-01-03 07:20 | NUR ---
ENDORSED PATIENT TO DAY SHIFT NURSE, PATIENT STABLE.
--- NOTE | 2018-01-03 07:24 | NUR ---
RECEIVED BEDSIDE REPORT FROM GAMEMASTER RN. PT SLEEPING IN BED, AROUSABLE BY VOICE. AOX1. DENIES PAIN AND DISCOMFORT. ON INVOLUNTARY HOLD WITH 1:1 SITTER. LUNGS CTA. HEART RHYTHM REGULAR. SKIN INTACT. IV SITE PATENT AND ASYMPTOMATIC, ON SL. UPDATED BOARD, EXPLAINED PLAN OF CARE. ALL SAFETY PRECAUTIONS IN PLACE, WILL CONTINUE TO MONITOR.
[2018-01-03 08:00] VITALS: BP 119/54
[2018-01-03] MEDS: MEMANTINE 10 MG TAB PO SCH (08:50)
[2018-01-03] MEDS: OLANZapine 5 MG TAB PO SCH ×3 (08:51→16:34)
[2018-01-03] MEDS: CITALOPRAM 20 MG TAB PO SCH (08:51)
--- NOTE | 2018-01-03 08:54 | NUR ---
PATIENT TOOK 0900 SCHEDULED MEDS CRUSHED WITH APPLE SAUCE. PT IS COOPERATIVE BUT CONFUSED AOX1 AT THIS TIME.
--- NOTE | 2018-01-03 09:34 | NUR ---
PT AMBULATING IN [facility] HALLWAYS WITH 1:1 SITTER ACCOMPANYING. GAIT EVEN AND STEADY, WITHOUT ASSIST. PT IS NOT COMBATIVE.
--- NOTE | 2018-01-03 10:24 | NUR ---
PT CONTINUES TO BE CONFUSED, THINKS HER SON IS OUTSIDE THE ROOM BUT NO FAMILY PRESENT.
--- NOTE | 2018-01-03 12:57 | NUR ---
PATIENT REFUSING 1300 MEDS AT THIS TIME, WANTS TO SLEEP NOW BUT SAYS SHE WILL TAKE IT LATER. WILL OFFER MEDS TO PT AGAIN LATER.
--- NOTE | 2018-01-03 15:24 | NUR ---
AT BEDSIDE SAYS HE DOES NOT FEEL LIKE PT IS READY TO GO HOME. HE SAYS PSYCHIATRIST TOLD HIM THEY WOULD SPEAK BEFORE DISCHARGE BUT HE STATES THE PSYCHIATRIST DID NOT SPEAK WITH HIM.
--- NOTE | 2018-01-03 15:48 | NUR ---
CALLED BRIAN AT [facility]. TOLD HER FAMILY IS INTERESTED TO HAVE HER TRANSFERRED THERE. BRIAN WILL UPDATE HER WARP KNITTING MACHINE OPERATOR AND CALL BACK REGARDING UPDATES.
[2018-01-03 16:00] VITALS: BP 104/49
--- NOTE | 2018-01-03 16:01 | NUR ---
PAGED DR. MOTA REGARDING THE PREVIOUS ISSUE REGARDING NOT WANTING PT TO GO HOME.
--- NOTE | 2018-01-03 16:24 | NUR ---
NOTIFIED DR. WHITTEN THAT DOES NOT WANT TO GO HOME. WANTS TO TRANSFER TO [facility].
--- NOTE | 2018-01-03 16:34 | NUR ---
CHEMIST ASSISTANT ROGER SPOKE WITH DR. MOTA. DR. MOTA TO RENEW INVOLUNTARY HOLD TOMORROW MORNING. HAVE CALLED [facility] AND TOLD THEM THE WOULD LIKE TO BE TRANSFERRED THERE. BRIAN FROM [facility] WILL UPDATE HER CONSULTING ENGINEER WITH THE NEW INFORMATION AND CALL US BACK.
--- NOTE | 2018-01-03 19:15 | NUR ---
ENDORSED PLAN OF CARE TO JEROME GODOY. PT IN STABLE CONDITION.
--- NOTE | 2018-01-03 19:16 | NUR ---
RECD. SLEEPING COMFORTABLY IN BED. RESPIRATION EVEN AND UNLABORED. IV SALINE LOCK COVERED WITH KERLIX, RIGHT FOREARM G20, PATENT AND INTACT. AT THE BEDSIDE. PLAN OF CARE DISCUSSED WITH . VERBALIZED UNDERSTANDING. NO APPEARANCE OF PAIN NOTED 0/10.
[2018-01-03 20:00] VITALS: BP 116/58
--- NOTE | 2018-01-03 20:00 | NUR ---
Patient's Plan of Care was discussed and reviewed with WALT: JEROME
[2018-01-03] MEDS: DONEPEZIL 10 MG TAB PO SCH (21:48)
--- NOTE | 2018-01-04 01:30 | NUR ---
WOKE UP FROM SLEEP, ASSISTED TO BR TO VOID. BACK TO BED AFTER VOIDING. SAFETY MAINTAINED.
--- NOTE | 2018-01-04 04:00 | NUR ---
GETS UP FROM BED EVERY 15-30 MINUTES TO VOID IN THE BATHROOM, ASSISTED NECESSARY.
[2018-01-04] MEDS: CEPHALEXIN 500 MG CAP PO SCH ×2 (05:00→13:39)
[2018-01-04] MEDS: HALOPERIDOL IM 5 MG/ML VIAL IM PRN (05:38)
--- NOTE | 2018-01-04 05:38 | NUR ---
VERY AGITATED, MEDICATED WITH HALDOL 2.5 MG. IM ORDERED.
--- NOTE | 2018-01-04 06:10 | NUR ---
RESTING IN BED, STILL AWAKE, NO AGITATION NOTED.
--- NOTE | 2018-01-04 07:30 | NUR ---
ENDORSED TO ANTONIO SOLOMON FOR CONTINUITY OF CARE.
--- NOTE | 2018-01-04 07:31 | NUR ---
RECEIVED BEDSIDE REPORT FROM PM SHIFT NURSE JEROME. PT AWAKE, CALMLY PACING IN ROOM, RESPIRATIONS EVEN & UNLABORED. 1:1 SITTER AT BEDSIDE FOR CONTINUOUS MONITORING.
[2018-01-04 08:00] VITALS: BP 133/82
[2018-01-04] MEDS: MEMANTINE 10 MG TAB PO SCH (08:59)
[2018-01-04] MEDS: OLANZapine 5 MG TAB PO SCH ×3 (08:59→17:12)
[2018-01-04] MEDS: CITALOPRAM 20 MG TAB PO SCH (09:01)
--- NOTE | 2018-01-04 09:10 | NUR ---
PT PACING IN HALLWAY WITH 1:1 SITTER ON STANDBY ASSIST & CONTINUOUS MONITORING. PT WITH STEADY GAIT, NO SIGNS OF DISTRESS, NO C/O DISCOMFORT.
--- NOTE | 2018-01-04 11:42 | NUR ---
JACKSCREW MAN AT BEDSIDE PROVIDING SPONGE BATH WITH MODERATE ASSIST. PT REQUIRES FREQUENT CUES TO PARTICIPATE IN ADL TASK. ABLE TO FOLLOW SIMPLE COMMANDS. KEITH TX WELL.
--- NOTE | 2018-01-04 13:35 | NUR ---
CM NOTE RECEIVED CALL FROM [facility] EBONI MEDINA # [phone] REQUESTING H&P, PSYCH CONSULT, 5150 HOLD AND LIST OF MEDS TO BE FAXED TO HER AGAIN TO [phone]. FAXED TO [facility].
--- NOTE | 2018-01-04 13:37 | NUR ---
Called the following facilities with no beds availability: [facility], s/w [facility] s/w [place] s/w [facility] Woodard s/w Rosaura
--- NOTE | 2018-01-04 14:27 | NUR ---
PT SITTING UP AT EDGE OF BED, SPOUSE & SISTER AT BEDSIDE. NO C/O PAIN OR DISCOMFORT, RESPIRATIONS EVEN & UNLABORED. 1:1 SITTER AT BEDSIDE FOR CONTINUOUS MONITORING.
--- NOTE | 2018-01-04 15:30 | NUR ---
RECEIVED CALL FROM LAURYN AT [facility]. STATES BED IS AVAILABLE FOR PT AT [facility]. NOTIFIED CHARGE NURSE. LEFT VOICEMAIL TO MARITZA KEYES FOR TRANSPORTATION REQUEST. PT CURRENTLY LYING IN BED, VERBALLY RESPONSIVE, AAOx3. NO C/O DISCOMFORT. Addendum: 01/04/18 at 1540 by Sherrill Stein RN CORRECTION FOR PT ORIENTATION: PT IS AAOx1.
[2018-01-04 16:00] VITALS: BP 115/90
--- NOTE | 2018-01-04 16:00 | NUR ---
SPOKE TO JOSE FROM [facility] ON THE PHONE. STATES THAT RECEIVING PHYSICIAN WILL BE DR. FERREIRA. IBETH SPOUSE AT BEDSIDE NOTIFIED & VERBALIZED UNDERSTANDING.
--- NOTE | 2018-01-04 17:00 | NUR ---
VERBAL & WRITTEN DISCHARGE INSTRUCTIONS PROVIDED TO SPOUSE IBETH AT BEDSIDE. VERBALIZED UNDERSTANDING. PT CALMLY PACING ROOM. NO C/O PAIN. RESPIRATIONS EVEN & UNLABORED.
--- NOTE | 2018-01-04 17:22 | NUR ---
PT LEFT HOSPITAL AT THIS TIME VIA [facility], ACCOMPANIED BY SPOUSE & 2 paper testing supervisor. PT CALM & COOPERATIVE DURING TRANSPORT. RESPIRATIONS EVEN & UNLABORED. ALL BELONGINGS SENT WITH SPOUSE. Addendum: 01/04/18 at 1735 by Sherrill Stein RN PT LEFT WITH [facility] TRANSPORT TO [facility].
== END 2018-01-04 17:22 | disposition designated cancer center or children's hospital (05) | DRG 690 ==
LOC: MED 19:00 → OBSVTOIN 01-01 01:25 → MTU 01-01 01:25 → INTOOBSV 01-01 01:25 → UNDOADMOB 01-01 01:25 → MTU 01-01 01:51 → OBSVTOIN 01-01 07:27
PROVIDERS: ADMIT Hospitalist; ATTEND Hospitalist
DX: N39.0 Urinary tract infection, site not specified (principal); G30.9 Alzheimer's disease, unspecified; F02.80 Dementia in other diseases classified elsewhere, unspecified severity, without behavioral disturbance, psychotic disturbance, mood disturbance, and anxiety; F41.9 Anxiety disorder, unspecified; F32.9 Major depressive disorder, single episode, unspecified; Z79.899 Other long term (current) drug therapy
CPT/HCPCS: 36415; 80053; 80305; 81001; 82550; 84484; 85025; 87081; 87086; 96365; 96372; 99285; C1758; G0480; G0482; J0696; J1630; J2060; J3486; J7030; J7060

== ENCOUNTER 2018-11-19 14:42 | Emergency (ER) | payer OTHER ==
[~2018-11-19] VITALS: Ht 149.9 cm; Wt 46.7 kg
[~2018-11-19 14:42] MED LIST changes: +CEPH250C16 PO; +MEMA10TA PO; +OLAN5TAB30 PO
[2018-11-19 14:45] VITALS: BP 110/66
--- NOTE | 2018-11-19 14:54 | NUR ---
CAREGIVER: IBETH [phone]
--- NOTE | 2018-11-19 14:55 | NUR ---
BIBA C/O HEMATOMA UNDER R EYE.S/P MECHANICAL FALL. PER EMS, PT CAREGIVER REPORTS PT FELL WHILE WALKING TOWARDS THE CURB. PT STATES "IT'S SORE" WHEN ASKED ABOUT PAIN. PER EMS, CAREGIVER REPORTS PT IS AT HER BASELINE MENTAL STATUS. HX: DEMEMTIA. PATIENT STATES PAIN OF 2/10 AT THIS TIME. PATIENT POSITIONED FOR COMFORT; HOB ELEVATED; BEDRAILS UP X1; BED DOWN. ER MD MADE AWARE OF PT STATUS.
--- NOTE | 2018-11-19 15:02 | NUR ---
PT TAKEN TO CT VIA W/C, ACCOMPANIED BY [employer] TECH.
[2018-11-19] MEDS: IBUPROFEN 600 MG TAB PO ONE ×2 (15:52→15:54)
--- NOTE | 2018-11-19 16:29 | NUR ---
PT AGITATED & REFUSED TO DC & GO HOME WITH SPECIAL OFFICER AUTOMAT AT THIS TIME.
[2018-11-19] MEDS ORDERED: HALOPERIDOL IM 5 MG/ML VIAL IM ONE (16:30)
[2018-11-19] MEDS ORDERED: CITA10TA11 PO (16:35)
[2018-11-19] MEDS ORDERED: QUET100T PO (16:35)
[2018-11-19] MEDS ORDERED: SERT50TA PO (16:35)
[2018-11-19] MEDS ORDERED: TRAZ-343 PO (16:35)
[2018-11-19] MEDS ORDERED: FOLIC ACID PO (16:35)
[2018-11-19] MEDS ORDERED: ZIPRASIDONE MESYLATE 20 MG/ML VIAL IM ONE (17:15)
[2018-11-19] MEDS ORDERED: WATER STERILE 10 ML MC ONE (17:18)
--- NOTE | 2018-11-19 17:40 | NUR ---
PROVIDED FOOD FOR PT AT THIS TIME
--- NOTE | 2018-11-19 17:40 | NUR ---
Kim cunningham in [place] - 11/19/18 at 1749 by MED1 PROVIED FOOD FOR PT AT THIS TIME
[2018-11-19 18:54] VITALS: BP 100/71
== END 2018-11-19 18:53 | disposition home or self-care (01) ==
LOC: MED 14:42
DX: S00.83XA Contusion of other part of head, initial encounter (principal); S60.811A Abrasion of right wrist, initial encounter; R45.1 Restlessness and agitation; F03.90 Unspecified dementia, unspecified severity, without behavioral disturbance, psychotic disturbance, mood disturbance, and anxiety; Z79.899 Other long term (current) drug therapy; W18.39XA Other fall on same level, initial encounter; Y93.89 Activity, other specified; Y92.89 Other specified places as the place of occurrence of the external cause; Y99.8 Other external cause status
CPT/HCPCS: 70486; 96372; 99284; J1630; J3486

== ENCOUNTER 2019-07-15 05:35 | Emergency (ER) | payer OTHER, SELFPAY ==
[~2019-07-15] VITALS: Ht 154.9 cm; Wt 68.0 kg
[2019-07-15 05:35] VITALS: BP 112/82
[~2019-07-15 05:35] MED LIST changes: -CEPH250C16 PO; +CITA10TA11 PO; -CITA40TA5 PO; +FOLIC ACID PO; -LORA0.5T6 PO; -OLAN5TAB30 PO; +QUET100T PO; +SERT50TA PO; +TRAZ-343 PO
--- NOTE | 2019-07-15 05:35 | NUR ---
Dr. Aggarwal examining patient.
--- NOTE | 2019-07-15 05:35 | NUR ---
PT LEXUS ALS. TAKEN TO BED 7
[2019-07-15] MEDS ORDERED: ONDANSETRON 4 MG/2 ML VIAL IVP ONE (05:40)
[2019-07-15] MEDS ORDERED: MORPHINE SULFATE 4 MG/ML SYR IVP ONE (05:40)
--- NOTE | 2019-07-15 05:40 | NUR ---
73 YEAR OLD FEMALE BIBA FROM HOME FOR LEFT HIP PAIN AFTER MECHANICAL FALL X1 HOUR AGO. PER EMS PT HAS HISTORY OF DEMENTIA AND FELL WHILE TRYING TO GET OUT OF BED. NO BLOOD THINNERS PER MEDICATIONS BROUGHT. PT PRESENTS WITH BRUISING TO LEFT INNER THIGH AND LEFT KNEE SWELLING. PT YELLS "OW IT HURTS" WHEN ANY CONTACT MADE WITH LEFT THIGH AREA. PT CONFUSED, GCS 13 ([id number]), ALERT AND AWAKE BREATHING EVEN AND UNLABORED, SKIN WARM AND DRY. BED IN LOWEST POSITION, LOCKED, BED RAIL UPX2. PMH - DEMENTIA ALLERGIES - NKA
--- NOTE | 2019-07-15 06:00 | NUR ---
# 15 FR Liu catheter with 10 ml utilizing sterile technique. Immediate return of 300 ml YELLOW urine noted. Bedside drainage bag placed below level of bladder. Urine sample collected and sent to lab. Pt tolerated procedure WELL.
[2019-07-15] MEDS ORDERED: LORazepam 2 MG/ML VIAL IVP ONE (06:10)
--- NOTE | 2019-07-15 06:10 | NUR ---
BLOOD DRAWN AND SENT TO LAB
--- NOTE | 2019-07-15 06:27 | NUR ---
PT TAKEN TO RADIOLOGY
[2019-07-15] MEDS ORDERED: MEMA5TAB PO (06:39)
[2019-07-15] MEDS ORDERED: QUET100T PO (06:39)
[2019-07-15] MEDS ORDERED: OLAN2.5T1 PO (06:39)
--- NOTE | 2019-07-15 06:59 | NUR ---
PT RETURN FROM RADIOLOGY
--- NOTE | 2019-07-15 07:04 | NUR ---
REPORT GIVEN TO IVAN RN, TRANSFER OF CARE AT THIS TIME
[2019-07-15 07:17] LABS: BASOPHILS # (AUTO) 0.1 K/uL (0.00-0.22); BASOPHILS % (AUTO) 0.9 % (0.0-2.0); EOSINOPHILS # (AUTO) 0.1 K/uL (0-0.4); EOSINOPHILS % (AUTO) 1.1 % (0.0-4.0); HEMATOCRIT 41.4 % (36-48); HEMOGLOBIN 13.5 g/dL (12.0-16.0); LYMPHOCYTES # (AUTO) 1.5 K/uL (2.5-16.5); LYMPHOCYTES % (AUTO) 19.5 % (20.5-51.1); MEAN CORPUSCULAR HEMOGLOBIN 31 pg (27-31); MEAN CORPUSCULAR HGB CONC 33 g/dL (33-37); MEAN CORPUSCULAR VOLUME 94.5 fL (80-94); MONOCYTES # (AUTO) 0.5 K/uL (0.8-1.0); MONOCYTES % (AUTO) 6.1 % (1.7-9.3); NEUTROPHILS # (AUTO) 5.7 K/uL (1.8-7.7); NEUTROPHILS % (AUTO) 72.4 % (42.2-75.2); PLATELET COUNT (AUTO) 286 K/uL (140-450); RED BLOOD CELL COUNT(AUTO) 4.38 MIL/uL (4.20-5.40); RED CELL DISTRIBUTION WIDTH 14.2 % (11.6-13.7); WHITE BLOOD COUNT (AUTO) 7.9 K/uL (4.8-10.8)
[2019-07-15 07:29] LABS: ANION GAP 14.4 (8-16); CARBON DIOXIDE 26.9 mmol/L (21-32); CHLORIDE 107 mmol/L (98-107); CREATININE 0.6 mg/dL (0.6-1.3); GLUCOSE 95 mg/dL (74-106); POTASSIUM 4.3 mmol/L (3.5-5.1); SODIUM SERUM 144 mmol/L (136-145); UREA NITROGEN, BLOOD 11 mg/dL (7-18)
[2019-07-15 07:34] LABS: ALBUMIN 3.2 g/dL (3.4-5.0); ASPARTATE AMINOTRANSFERASE 29 U/L (15-37); TOTAL BILIRUBIN 0.6 mg/dL (0.0-1.0)
[2019-07-15 07:35] LABS: PROTHROMBIN TIME 9.3 secs (10.8-13.4)
[2019-07-15 07:40] LABS: APPEARANCE,URINE CLEAR (CLEAR); BILIRUBIN,URINE NEGATIVE (NEGATIVE); BLOOD, URINE NEGATIVE (NEGATIVE); COLOR,URINE YELLOW (YELLOW); LEUKOCYTE ESTERASE ,URINE NEGATIVE (NEGATIVE); NITRITE, URINE NEGATIVE (NEGATIVE); PH,URINE 6.5 (5.0-9.0); UGLUCOSE NEGATIVE (NEGATIVE)
--- NOTE | 2019-07-15 07:54 | NUR ---
KEY DONE SWAB AT BEDSIDE. PT TOLERATED PROCEDURE WELL. SWAB WALKED TO LAB
--- NOTE | 2019-07-15 08:36 | NUR ---
PT IS RESTING IN BED, RESP EVEN AND UNLABORED, VSS. BED IN LOWEST POSITION. ALL NEEDS MET AT THIS TIME
--- NOTE | 2019-07-15 09:07 | NUR ---
PATIENT TRANFER ACKNOWLEDGMENT SIGNED BY ANTONIO RICKETTS AND WITNESSED BY MYSELF. PATIENT INFORMED OF THE TRANFER TO REYNA DAWSON FOR HER PELVIC FRACTURE, BUT DUE TO PATIENTS DEMENTIA, PATIENT DOES NOT COMPREHEND. PATIENT HAS NO FAMILY OR DECISION MAKER.
--- NOTE | 2019-07-15 09:29 | NUR ---
PATIENT GOING TO [facility] 2129, NUMBER FOR REPORT IS [phone]
--- NOTE | 2019-07-15 09:55 | NUR ---
REPORT CALLED TO [phone], SPOKE WITH ISIAH ALVAREZ @ [phone]
--- NOTE | 2019-07-15 10:03 | NUR ---
TRANSPORT AT BEDSIDE FOR PICKUP
[2019-07-15 10:04] VITALS: BP 107/66
--- NOTE | 2019-07-15 10:05 | NUR ---
Patient to be transferred to [facility]. Is being transferred due to ORTHOPEDIC. Receiving facility has accepting physician and available space. ER physician has signed transfer form. Patient or responsible constitution party has agreed to transfer and signed form. Patient belongings inventoried and will be sent with patient. Copy of nursing notes, lab reports, EKG, Physicians Orders and X-rays to be sent with patient. Report called to ISIAH ALVAREZ at receiving facility.
== END 2019-07-15 10:05 | disposition short-term general hospital (02) ==
LOC: MED 05:35 → EEVIPCON 05:35 → MED 10:05
DX: S32.89XA Fracture of other parts of pelvis, initial encounter for closed fracture (principal); Z20.828 Contact with and (suspected) exposure to other viral communicable diseases; F03.90 Unspecified dementia, unspecified severity, without behavioral disturbance, psychotic disturbance, mood disturbance, and anxiety; Z79.899 Other long term (current) drug therapy; W19.XXXA Unspecified fall, initial encounter; Y93.89 Activity, other specified; Y92.89 Other specified places as the place of occurrence of the external cause; Y99.8 Other external cause status
CPT/HCPCS: 36415; 70450; 71045; 72125; 72192; 80053; 81003; 83880; 84484; 85025; 85610; 85730; 93005; 96374; 96375; 99285; C9803; J2060; J2270; J2405; Q0092; U0003